=== PATIENT | male | born 1955 | race Caucasian/White ===

== ENCOUNTER 2017-12-02 21:08 | Emergency (ER) | payer MEDICARE ==
[~2017-12-02] VITALS: Ht 180.3 cm; Wt 127.3 kg
[2017-12-02 21:13] VITALS: Ht 180.3 cm; Wt 127.3 kg
[2017-12-02] MEDS ORDERED: GLIMEPIRIDE1 MG PO (21:25)
[2017-12-02] MEDS ORDERED: CHILDREN'S ASPI81 MG PO (21:25)
[2017-12-02] MEDS ORDERED: BENZTROPINE MESY1 MG PO (21:25)
[2017-12-02] MEDS ORDERED: VITAMIN D31000 UNIT PO (21:26)
[2017-12-02] MEDS ORDERED: KLONOPIN0.5 MG PO (21:28)
[2017-12-02] MEDS ORDERED: NUEDEXTA 20-101 EACH PO (21:28)
[2017-12-02] MEDS ORDERED: GLUCOPHAGE1000 MG PO (21:38)
[2017-12-02] MEDS ORDERED: FAMOTIDINE10 MG PO (21:38)
[2017-12-02] MEDS ORDERED: FISH OIL 1,0001 CA1 PO (21:38)
[2017-12-02] MEDS ORDERED: TOPROL XL25 MG PO (21:39)
[2017-12-02] MEDS ORDERED: MIRALAX527 GM PO (21:39)
[2017-12-02] MEDS ORDERED: MULTI-DAY VITAM1 TAB PO (21:40)
[2017-12-02] MEDS ORDERED: NITROSTAT0.4 MG SL (21:40)
[2017-12-02] MEDS ORDERED: NEURONTIN 300300 MG PO (21:40)
[2017-12-02] MEDS ORDERED: TRAZODONE HCL150 MG PO (21:41)
[2017-12-02] MEDS ORDERED: NOVOLOG100 U/M1 SC (21:41)
[2017-12-02] MEDS ORDERED: RISPERDAL2 MG PO (21:41)
[2017-12-02] MEDS ORDERED: RISPERDAL4 MG PO (21:41)
[2017-12-02 21:47] LABS: BASOPHILS 0.3 % (0-2); EOSINOPHILS 5.4 % (0-7); HEMATOCRIT 28.6 % (42.0-54.0); HEMOGLOBIN 9.4 g/dL (13.5-17.5); IMMATURE GRANULOCYTES 0.4 % (0-5); LYMPHOCYTES 30.2 % (15-50); MCH 26.9 pg (26.0-34.0); MCHC 32.9 g/dL (31.0-37.0); MCV 81.7 fL (80.0-100.0); MEAN PLATELET VOLUME 8.2 fL (7.4-10.4); MONOCYTES 9.1 % (2-11); NEUTROPHILS 54.6 % (40-80); PLATELET COUNT 220 10x3/uL (130-400); RDW 14.5 % (11.5-14.5); WBC 9.3 10x3/uL (4.8-10.8)
[2017-12-02 22:08] LABS: ALKALINE PHOSPHATASE 71 U/L (46-116); ALT (SGPT) 22 U/L (10-68); CALCIUM 8.7 mg/dL (8.5-10.1); CARBON DIOXIDE 29.3 mmol/L (21.0-32.0); CHLORIDE - SERUM 95 mmol/L (98-107); CREATININE - SERUM 0.7 mg/dL (0.6-1.3); POTASSIUM - SERUM 3.6 mmol/L (3.5-5.1); PROTEIN - SERUM 6.6 g/dL (6.4-8.2); SODIUM 131 mmol/L (136-145); UREA NITROGEN 7 mg/dL (7-18); eGFR NON AFRICAN AMERICAN > 90 mL/min (90-120)
[2017-12-02 22:11] LABS: CALC OSMOLALITY 261 mosm/kg (275-300); GLUCOSE 123 mg/dL (74-106)
[2017-12-02 22:15] LABS: TROPONIN-I < 0.017 ng/mL (0.000-0.060)
[2017-12-03] MEDS ORDERED: HYDROCODON-ACE1 EAC7 PO (03:56)
[2017-12-03 05:26] VITALS: BP 134/79
== END 2017-12-03 05:27 ==
LOC: D.ER 21:08
PROVIDERS: Emergency Medicine
DX: M54.2 Cervicalgia (principal); E11.9 Type 2 diabetes mellitus without complications; I10 Essential (primary) hypertension; F03.90 Unspecified dementia, unspecified severity, without behavioral disturbance, psychotic disturbance, mood disturbance, and anxiety

== ENCOUNTER 2017-12-04 17:31 | Emergency (ER) | payer MEDICARE ==
[~2017-12-04] VITALS: Ht 180.3 cm; Wt 100.0 kg
[~2017-12-04 17:31] MED LIST: BENZTROPINE MESY1 MG PO; CHILDREN'S ASPI81 MG PO; FAMOTIDINE10 MG PO; FISH OIL 1,0001 CA1 PO; GLIMEPIRIDE1 MG PO; GLUCOPHAGE1000 MG PO; HYDROCODON-ACE1 EAC7 PO; KLONOPIN0.5 MG PO; MIRALAX527 GM PO; MULTI-DAY VITAM1 TAB PO; NEURONTIN 300300 MG PO; NITROSTAT0.4 MG SL; NOVOLOG100 U/M1 SC; NUEDEXTA 20-101 EACH PO; RISPERDAL2 MG PO; RISPERDAL4 MG PO; TOPROL XL25 MG PO; TRAZODONE HCL150 MG PO; VITAMIN D31000 UNIT PO
[2017-12-04 17:33] VITALS: Ht 180.3 cm; Wt 100.0 kg
[2017-12-04 19:05] VITALS: BP 140/88
== END 2017-12-04 18:58 ==
LOC: D.ER 17:31
DX: I10 Essential (primary) hypertension (principal); Z87.820 Personal history of traumatic brain injury; E11.9 Type 2 diabetes mellitus without complications; F03.90 Unspecified dementia, unspecified severity, without behavioral disturbance, psychotic disturbance, mood disturbance, and anxiety